=== PATIENT | female | born 1935 | race Caucasian/White ===

== ENCOUNTER 2017-02-11 09:33 | Emergency (ER) | payer OTHER ==
[~2017-02-11] VITALS: Ht 157.5 cm; Wt 70.0 kg
[~2017-02-11 09:33] MED LIST: ASPI-496 PO; INSU100I11; INSU100V8 HOMEINJ; LABE200T3 PO; LANS30CA PO; LOSA1TAB16 PO; LOVA20TA2 PO; OMEP-110 PO; PRAV40TA2 PO
[2017-02-11 10:31] LABS: HEMOGLOBIN 12.8 g/dL (11.7-16.4)
[2017-02-11 10:51] LABS: BLOOD UREA NITROGEN 27 mg/dL (7-18)
[2017-02-11 10:59] LABS: ASPARTATE AMINO TRANSFERASE 15 U/L (15-37)
[2017-02-11] MEDS ORDERED: SODIUM CHLORIDE FLUSH 10ML SYR IVF ONE (11:00)
[2017-02-11 11:04] LABS: IS PT STATUS REG ER OR PRE ER? YES
[2017-02-11] MEDS ORDERED: OMNIPAQUE 350 MG/ML, 100ML BOTTLE ONE (12:57)
[2017-02-11 13:41] VITALS: BP 173/47
== END 2017-02-11 13:56 | disposition home or self-care (01) ==
LOC: ED 13:50
DX: J20.8 Acute bronchitis due to other specified organisms (principal); E78.00 Pure hypercholesterolemia, unspecified; E11.9 Type 2 diabetes mellitus without complications; I10 Essential (primary) hypertension; K21.9 Gastro-esophageal reflux disease without esophagitis; E78.5 Hyperlipidemia, unspecified; Z79.4 Long term (current) use of insulin; Z88.6 Allergy status to analgesic agent; Z88.8 Allergy status to other drugs, medicaments and biological substances
CPT/HCPCS: 36415; 71020; 71275; 80053; 83605; 83880; 84484; 85025; 85379; 85610; 85730; 87040; 93005; 99285; Q9967

== ENCOUNTER 2017-03-19 05:20 | Inpatient (IN) | payer OTHER ==
[~2017-03-19] VITALS: Ht 158.8 cm; Wt 74.5 kg
[2017-03-19] MEDS ORDERED: ASPIRIN 81 MG TABLET CHEW PO ONE (06:00)
[2017-03-19] MEDS ORDERED: SODIUM CHLORIDE FLUSH 10ML SYR IVF ONE (06:00)
[2017-03-19] MEDS ORDERED: ASPIRIN 81 MG TABLET CHEW ONE (06:02)
[2017-03-19] MEDS ORDERED: NITROGLYCERIN SINGLE TAB 0.4 MG SL ONE ×3 (06:02→07:27)
[2017-03-19 06:21] LABS: BLOOD UREA NITROGEN 26 mg/dL (7-18)
[2017-03-19 06:32] LABS: IS PT STATUS REG ER OR PRE ER? YES
[2017-03-19] MEDS: NITROGLYCERIN SINGLE TAB 0.4 MG SL PRN ×4 (06:48→21:33)
[2017-03-19] MEDS ORDERED: HEPARIN 5,000 UNITS/ML, 1ML IV ONE (07:00)
[2017-03-19] MEDS ORDERED: HEPARIN 5,000 UNITS/ML, 1ML IV PRN ×2 (07:00→16:30)
[2017-03-19] MEDS ORDERED: HEPARIN 25,000 UNITS/500ML PMX 500 ML IV PRN ×2 (07:00→16:30)
[2017-03-19] MEDS ORDERED: HEPARIN 25,000 UNITS/500ML PMX 500 ML ONE (07:11)
[2017-03-19] MEDS ORDERED: HEPARIN 5,000 UNITS/ML, 1ML ONE (07:11)
[2017-03-19] MEDS ORDERED: OMNIPAQUE 350 MG/ML, 100ML BOTTLE ONE (07:21)
[2017-03-19 08:45] VITALS: BP 146/85
[2017-03-19] MEDS ORDERED: NITROGLYCERIN 0.4 MG BOTTLE (25 TABS) SL ONE (09:16)
[2017-03-19 09:33] VITALS: BP 147/82
[2017-03-19] MEDS: NITROGLYCERIN OINT 2%, 1GM TP SCH ×3 (09:46→20:53)
[2017-03-19 10:31] VITALS: BP 149/78
[2017-03-19] MEDS ORDERED: ACETAMINOPHEN 325 MG TABLET PO PRN (11:00)
[2017-03-19] MEDS ORDERED: POLYETHYLENE GLYCOL 17 GM PACKET PO PRN (11:00)
[2017-03-19] MEDS ORDERED: ONDANSETRON 2MG/ML, 2ML IVPush PRN (11:00)
[2017-03-19] MEDS ORDERED: ENALAPRILAT 1.25 MG/ML, 2ML IVPush PRN (11:00)
[2017-03-19] MEDS ORDERED: hydrALAzine 20 MG/ML, 1ML IVPush PRN (11:00)
[2017-03-19] MEDS ORDERED: OXYcodone IR 5MG TABLET PO PRN (11:00)
[2017-03-19] MEDS ORDERED: morphine SULFATE 10 MG/ML, 1ML IVPush PRN (11:00)
[2017-03-19] MEDS ORDERED: BISACODYL 10 MG SUPP PR PRN (11:00)
[2017-03-19] MEDS ORDERED: MIDAZOLAM 1 MG/ML, 5ML ONE (11:12)
[2017-03-19] MEDS ORDERED: HEPARIN 1,000 UNITS/ML, 10ML ONE (11:13)
[2017-03-19] MEDS ORDERED: LIDOCAINE 2%, 20ML ONE (11:13)
[2017-03-19] MEDS ORDERED: NITROGLYCERIN 5 MG/ML, 10ML ONE (11:13)
[2017-03-19] MEDS ORDERED: TICAGRELOR 90 MG TABLET ONE (11:13)
[2017-03-19] MEDS ORDERED: VERAPAMIL 2.5 MG/ML, 2ML ONE (11:13)
[2017-03-19] MEDS ORDERED: FENTANYL PF 100 MCG/2ML ONE (11:13)
[2017-03-19] MEDS ORDERED: BIVALIRUDIN 250 MG ONE (11:13)
[2017-03-19] MEDS: SODIUM CHLORIDE 0.9% 1,000 ML IV SCH ×2 (13:01→20:11)
[2017-03-19] MEDS ORDERED: METOPROLOL TARTRATE 25 MG TABLET PO ONE (14:00)
[2017-03-19] MEDS ORDERED: INSULIN ASPART 100 UNITS/ML, PEN SQ-INSULIN SCH (14:00)
[2017-03-19 14:45] LABS: BLOOD UREA NITROGEN 22 mg/dL (7-18)
[2017-03-19 14:48] LABS: ASPARTATE AMINO TRANSFERASE 15 U/L (15-37)
[2017-03-19 14:50] LABS: IS PT STATUS REG ER OR PRE ER? NO
[2017-03-19] MEDS: INSULIN ASPART 100 UNITS/ML, PEN SQ-INSULIN SCH ×2 (15:09→20:50)
[2017-03-19 16:03] VITALS: BP 132/66
[2017-03-19 18:59] VITALS: BP 128/71
[2017-03-19 19:30] LABS: IS PT STATUS REG ER OR PRE ER? NO
[2017-03-19] MEDS: LABETALOL 200 MG TABLET PO SCH (20:49)
[2017-03-19] MEDS: SODIUM CHLORIDE FLUSH 10ML SYR IVF SCH (20:50)
[2017-03-19] MEDS: MUPIROCIN OINT 2%, 22GM TP SCH (20:53)
[2017-03-19] MEDS: CHLORHEXIDINE MOUTHWASH 15 ML UDC MM PRN (20:54)
[2017-03-19] MEDS ORDERED: PRAVASTATIN 40 MG TABLET PO SCH (21:00)
[2017-03-19 21:32] VITALS: BP 129/77
[2017-03-20] MEDS ORDERED: ALBUMIN HUMAN 5% 500 ML IV ONE (00:30)
[2017-03-20 01:10] VITALS: BP 131/71
[2017-03-20 01:11] VITALS: BP 126/73
[2017-03-20 01:39] LABS: PATH.CAST-FLAG NOT PRESENT; SPERM-FLAG NOT PRESENT; SRC-FLAG NOT PRESENT; XTAL-FLAG NOT PRESENT; YLC-FLAG NOT PRESENT
[2017-03-20] MEDS: NITROGLYCERIN OINT 2%, 1GM TP SCH ×2 (03:30→09:30)
[2017-03-20 04:39] VITALS: BP 135/76
[2017-03-20] MEDS: INSULIN ASPART 100 UNITS/ML, PEN SQ-INSULIN SCH (04:40)
[2017-03-20] MEDS: MUPIROCIN OINT 2%, 22GM TP SCH (04:40)
[2017-03-20] MEDS: CHLORHEXIDINE MOUTHWASH 15 ML UDC MM PRN (04:41)
[2017-03-20 05:59] LABS: ASPARTATE AMINO TRANSFERASE 17 U/L (15-37); BLOOD UREA NITROGEN 23 mg/dL (7-18)
[2017-03-20] MEDS ORDERED: MIDAZOLAM 10MG/2 ML ONE (06:26)
[2017-03-20] MEDS ORDERED: FENTANYL PF 1000 MCG/20ML ONE (06:26)
[2017-03-20] MEDS ORDERED: DEXAMETHASONE 4 MG/ML, 1ML ONE (07:13)
[2017-03-20] MEDS ORDERED: ROCURONIUM 10 MG/ML ONE (07:13)
[2017-03-20] MEDS ORDERED: PROPOFOL 10 MG/ML, 20ML ONE (07:13)
[2017-03-20] MEDS ORDERED: MANNITOL PMX 20% 500 ML IVPB PRN (07:30)
[2017-03-20] MEDS ORDERED: POTASSIUM CHLORIDE 80 MEQ, SODIUM BICARBONATE 8.4% 10 MEQ, MAGNESIUM SULFATE 0.5 GM, LI... IV PRN (07:30)
[2017-03-20] MEDS ORDERED: EPINEPHRINE 2 MG in SODIUM CHLORIDE 0.9% 248 ML IV SCH (07:30)
[2017-03-20] MEDS ORDERED: VANCOMYCIN 1,100 MG in SODIUM CHLORIDE 0.9% 250 ML IVPB PRN (07:30)
[2017-03-20] MEDS ORDERED: DEXMEDETOMIDINE 200 MCG in SODIUM CHLORIDE 0.9% 48 ML IV SCH (07:30)
[2017-03-20] MEDS ORDERED: CEFUROXIME 1.5 GM in SODIUM CHLORIDE 0.9% 50 ML IVPB PRN (07:30)
[2017-03-20] MEDS ORDERED: PHENYLEPHRINE 10 MG in SODIUM CHLORIDE 0.9% 249 ML IV PRN ×2 (07:30→10:43)
[2017-03-20] MEDS ORDERED: REGULAR INSULIN 62.5 UNITS in SODIUM CHLORIDE 0.9% 249.375 ML IV PRN ×2 (07:30→10:43)
[2017-03-20] MEDS ORDERED: PANTOPROZOLE 40MG TABLET PO SCH (09:00)
[2017-03-20] MEDS: SODIUM CHLORIDE FLUSH 10ML SYR IVF SCH ×2 (09:00→22:11)
[2017-03-20] MEDS ORDERED: HYDROCHLOROTHIAZIDE 12.5 MG CAPSULE PO SCH (09:00)
[2017-03-20] MEDS ORDERED: ASPIRIN 81 MG TABLET EC PO SCH (09:00)
[2017-03-20] MEDS: LOSARTAN 50MG TABLET PO SCH (09:00)
[2017-03-20] MEDS ORDERED: SENNA/DOCUSATE TABLET PO SCH (09:00)
[2017-03-20] MEDS: LABETALOL 200 MG TABLET PO SCH (09:00)
[2017-03-20] MEDS ORDERED: SODIUM CHLORIDE 0.9% 1,000 ML IV PRN (10:43)
[2017-03-20] MEDS ORDERED: DEXMEDETOMIDINE 200 MCG in SODIUM CHLORIDE 0.9% 48 ML IV PRN (10:43)
[2017-03-20] MEDS ORDERED: CLEVIDIPINE 50 ML IV PRN (10:43)
[2017-03-20] MEDS ORDERED: NITROGLYCERIN/D5W PMX 250 ML IV PRN (10:43)
[2017-03-20] MEDS ORDERED: DOBUTAMINE 250 MG in SODIUM CHLORIDE 0.9% 230 ML IV PRN (10:43)
[2017-03-20] MEDS ORDERED: EPINEPHRINE 2 MG in SODIUM CHLORIDE 0.9% 248 ML IV PRN (11:00)
[2017-03-20] MEDS ORDERED: LACTATED RINGERS 500 ML IV PRN (11:00)
[2017-03-20] MEDS ORDERED: DEXTROSE 50%, 50ML SYRINGE IVPush PRN (11:00)
[2017-03-20] MEDS ORDERED: SODIUM BICARB 8.4%, 50ML SYRINGE IV PRN (11:00)
[2017-03-20] MEDS ORDERED: ACETAMINOPHEN 650 MG SUPP PR PRN (11:00)
[2017-03-20] MEDS ORDERED: PROCHLORPERAZINE 5 MG/ML, 2ML IVPush PRN (11:00)
[2017-03-20] MEDS ORDERED: MIDAZOLAM 1 MG/ML, 5ML IVPush PRN (11:00)
[2017-03-20] MEDS ORDERED: GLUCAGON 1 MG IM PRN (11:00)
[2017-03-20] MEDS ORDERED: BISACODYL 10 MG SUPP PR PRN (11:00)
[2017-03-20] MEDS ORDERED: ACETAMINOPHEN 325 MG TABLET PO PRN (11:00)
[2017-03-20] MEDS ORDERED: DEXTROSE 4 GM TAB.CHEW PO PRN (11:00)
[2017-03-20] MEDS: KSCALE TO 4.5 IV SCH ×2 (11:00→17:00)
[2017-03-20] MEDS ORDERED: BISACODYL 5 MG EC TABLET PO PRN (11:00)
[2017-03-20] MEDS ORDERED: MEPERIDINE/PF 25MG/0.5ML IVPush PRN (11:00)
[2017-03-20 11:24] LABS: ABG COLLECTION SITE ARTERIAL LINE
[2017-03-20] MEDS: morphine SULFATE 10 MG/ML, 1ML IVPush PRN ×4 (11:24→22:44)
[2017-03-20] MEDS: MAGNESIUM SULFATE 1 GM in SODIUM CHLORIDE 0.9% 50 ML IVPB SCH (11:31)
[2017-03-20] MEDS ORDERED: CALCIUM CHLORIDE 10%, 10ML SYR ONE (12:54)
[2017-03-20] MEDS ORDERED: PROTAMINE SULFATE 10 MG/ML, 25ML ONE (12:54)
[2017-03-20] MEDS ORDERED: HEPARIN 1,000 UNITS/ML, 30ML ONE (12:55)
[2017-03-20] MEDS ORDERED: LIDOCAINE 2% 100MG/5ML SYRINGE ONE (12:55)
[2017-03-20] MEDS ORDERED: AMINOCAPROIC ACID 250 MG/ML, 20ML ONE (12:55)
[2017-03-20] MEDS ORDERED: ALBUMIN HUMAN 25% 100 ML ONE (12:55)
[2017-03-20] MEDS ORDERED: HEPARIN 1,000 UNITS/ML, 10ML ONE (12:55)
[2017-03-20] MEDS ORDERED: PAPAVERINE 30 MG/ML, 2ML ONE (12:55)
[2017-03-20] MEDS ORDERED: SODIUM BICARBONATE 1 MEQ/ML, 50ML VIAL ONE (12:58)
[2017-03-20 17:08] LABS: ABG COLLECTION SITE NOT DOCUMENTED
[2017-03-20] MEDS: CEFUROXIME 1.5 GM in SODIUM CHLORIDE 0.9% 50 ML IVPB SCH (17:53)
[2017-03-20] MEDS: VANCOMYCIN PMX 1GM/200ML 200 ML IVPB SCH (18:32)
[2017-03-20] MEDS: DOCUSATE 100 MG CAPSULE PO SCH (22:10)
[2017-03-20] MEDS: MUPIROCIN OINT 2%, 22GM NAS SCH (22:10)
[2017-03-20] MEDS: HYDROcodone/APAP 10/325 MG TABLET PO PRN (22:11)
[2017-03-21] MEDS: KSCALE TO 4.5 IV SCH ×2 (01:00→05:48)
[2017-03-21] MEDS: HYDROcodone/APAP 10/325 MG TABLET PO PRN ×4 (03:08→18:25)
[2017-03-21 04:00] VITALS: BP 116/43
[2017-03-21 04:57] LABS: BLOOD UREA NITROGEN 27 mg/dL (7-18)
[2017-03-21] MEDS: CEFUROXIME 1.5 GM in SODIUM CHLORIDE 0.9% 50 ML IVPB SCH (05:46)
[2017-03-21] MEDS ORDERED: ENOXAPARIN 30 MG/0.3 ML SQ SCH (07:30)
[2017-03-21] MEDS: INSULIN ASPART 100 UNITS/ML, PEN SQ-INSULIN PRN ×5 (07:30→21:45)
[2017-03-21] MEDS: SODIUM CHLORIDE FLUSH 10ML SYR IVF SCH ×3 (07:34→21:41)
[2017-03-21] MEDS: PANTOPRAZOLE 40 MG IV IVPush SCH (07:34)
[2017-03-21] MEDS: VANCOMYCIN PMX 1GM/200ML 200 ML IVPB SCH (07:34)
[2017-03-21] MEDS: MUPIROCIN OINT 2%, 22GM NAS SCH ×2 (07:34→21:42)
[2017-03-21] MEDS: LOSARTAN 50MG TABLET PO SCH (07:35)
[2017-03-21] MEDS: ASPIRIN 81 MG TABLET EC PO SCH (07:35)
[2017-03-21] MEDS: DOCUSATE 100 MG CAPSULE PO SCH ×2 (07:35→21:42)
[2017-03-21] MEDS ORDERED: MAGNESIUM HYDROXIDE 8%, 30ML UDC PO PRN (08:00)
[2017-03-21] MEDS: ONDANSETRON 2MG/ML, 2ML IVPush PRN (09:00)
[2017-03-21] MEDS: MAGNESIUM SULFATE 1 GM in SODIUM CHLORIDE 0.9% 50 ML IVPB SCH (11:10)
[2017-03-21] MEDS: CHLORHEXIDINE MOUTHWASH 15 ML UDC MM SCH ×2 (11:11→23:05)
[2017-03-21] MEDS ORDERED: SODIUM CHLORIDE 0.9%, 500ML IVBOLUS ONE (13:00)
[2017-03-21 16:43] VITALS: BP 94/41
[2017-03-21 19:33] VITALS: BP 110/67
[2017-03-21] MEDS: SIMVASTATIN 20 MG TABLET PO SCH (21:43)
[2017-03-21] MEDS: OXYcodone IR 5MG TABLET PO PRN (21:57)
[2017-03-22 02:40] VITALS: BP 125/69
[2017-03-22 04:00] VITALS: BP 109/69
[2017-03-22] MEDS ORDERED: AMIODARONE 900 MG in DEXTROSE 5% 482 ML IV PRN (04:30)
[2017-03-22] MEDS ORDERED: AMIODARONE 150 MG in DEXTROSE 5% 100 ML IV ONE (04:30)
[2017-03-22] MEDS: HYDROcodone/APAP 10/325 MG TABLET PO PRN ×2 (04:35→08:58)
[2017-03-22 04:55] LABS: BLOOD UREA NITROGEN 42 mg/dL (7-18)
[2017-03-22 05:00] VITALS: BP 101/64
[2017-03-22] MEDS ORDERED: FILTER 0.22 MICRON IV PRN (05:00)
[2017-03-22 06:56] VITALS: BP 103/58
[2017-03-22] MEDS: ONDANSETRON 2MG/ML, 2ML IVPush PRN (07:57)
[2017-03-22] MEDS: ASPIRIN 81 MG TABLET EC PO SCH (08:57)
[2017-03-22] MEDS: MUPIROCIN OINT 2%, 22GM NAS SCH ×2 (08:58→20:54)
[2017-03-22] MEDS: PANTOPRAZOLE 40 MG IV IVPush SCH (08:58)
[2017-03-22] MEDS: DOCUSATE 100 MG CAPSULE PO SCH ×2 (08:58→20:54)
[2017-03-22] MEDS ORDERED: ENOXAPARIN 30 MG/0.3 ML SQ SCH ×2 (09:00)
[2017-03-22] MEDS ORDERED: FUROSEMIDE 20 MG/2 ML IV SCH ×2 (09:00)
[2017-03-22] MEDS ORDERED: ENOXAPARIN 40 MG/0.4 ML SQ SCH (09:00)
[2017-03-22] MEDS ORDERED: POTASSIUM CHLORIDE 10 MEQ TABLET.ER PO SCH (09:00)
[2017-03-22] MEDS: INSULIN ASPART 100 UNITS/ML, PEN SQ-INSULIN PRN ×4 (09:08→20:58)
[2017-03-22] MEDS: SODIUM CHLORIDE FLUSH 10ML SYR IVF SCH ×4 (09:10→20:54)
[2017-03-22] MEDS ORDERED: SODIUM CHLORIDE 0.9% 1,000 ML IV SCH (09:30)
[2017-03-22] MEDS: CHLORHEXIDINE MOUTHWASH 15 ML UDC MM SCH ×2 (11:50→23:18)
[2017-03-22] MEDS: MAGNESIUM SULFATE 1 GM in SODIUM CHLORIDE 0.9% 50 ML IVPB SCH (11:51)
[2017-03-22] MEDS: HEPARIN 5,000 UNITS/ML, 1ML SQ SCH ×2 (13:06→21:01)
[2017-03-22 14:14] VITALS: BP 99/66
[2017-03-22] MEDS: SIMVASTATIN 20 MG TABLET PO SCH (20:54)
[2017-03-22 21:00] VITALS: BP 110/68
[2017-03-23] MEDS: HEPARIN 5,000 UNITS/ML, 1ML SQ SCH ×3 (04:24→22:13)
[2017-03-23 04:25] VITALS: BP 115/70
[2017-03-23 07:04] LABS: BLOOD UREA NITROGEN 68 mg/dL (7-18)
[2017-03-23 07:19] LABS: ASPARTATE AMINO TRANSFERASE 2280 U/L (15-37)
[2017-03-23 08:02] VITALS: BP 110/68
[2017-03-23] MEDS: ASPIRIN 81 MG TABLET EC PO SCH (08:40)
[2017-03-23] MEDS: CLOPIDOGREL 75 MG TABLET PO SCH (08:40)
[2017-03-23] MEDS: PANTOPRAZOLE 40 MG IV IVPush SCH (08:40)
[2017-03-23] MEDS: DOCUSATE 100 MG CAPSULE PO SCH ×2 (08:40→22:14)
[2017-03-23] MEDS: SODIUM CHLORIDE FLUSH 10ML SYR IVF SCH ×4 (08:42→22:13)
[2017-03-23] MEDS: INSULIN ASPART 100 UNITS/ML, PEN SQ-INSULIN SCH ×4 (08:53→21:00)
[2017-03-23] MEDS ORDERED: CLOPIDOGREL 75 MG TABLET PO SCH (09:00)
[2017-03-23] MEDS: MUPIROCIN OINT 2%, 22GM NAS SCH ×2 (09:05→22:14)
[2017-03-23] MEDS ORDERED: ARANESP 100 MCG/ML **ESRD SQ SCH (12:30)
[2017-03-23 13:15] VITALS: BP 135/68
[2017-03-23 20:00] VITALS: BP 130/69
[2017-03-23] MEDS: SIMVASTATIN 20 MG TABLET PO SCH (21:00)
[2017-03-24 03:47] VITALS: BP 133/71
[2017-03-24 05:21] LABS: ASPARTATE AMINO TRANSFERASE 785 U/L (15-37); BLOOD UREA NITROGEN 90 mg/dL (7-18)
[2017-03-24] MEDS: HEPARIN 5,000 UNITS/ML, 1ML SQ SCH ×3 (05:45→22:14)
[2017-03-24 07:10] VITALS: BP 130/66
[2017-03-24] MEDS: PANTOPROZOLE 40MG TABLET PO SCH ×2 (07:30→12:46)
[2017-03-24] MEDS: INSULIN ASPART 100 UNITS/ML, PEN SQ-INSULIN SCH ×4 (08:32→22:14)
[2017-03-24] MEDS: CLOPIDOGREL 75 MG TABLET PO SCH (08:55)
[2017-03-24] MEDS: PANTOPRAZOLE 40 MG IV IVPush SCH (08:55)
[2017-03-24] MEDS: DOCUSATE 100 MG CAPSULE PO SCH ×2 (08:55→21:00)
[2017-03-24] MEDS: MUPIROCIN OINT 2%, 22GM NAS SCH ×2 (08:55→22:14)
[2017-03-24] MEDS: ASPIRIN 81 MG TABLET EC PO SCH (08:55)
[2017-03-24] MEDS: SODIUM CHLORIDE FLUSH 10ML SYR IVF SCH ×4 (09:02→22:13)
[2017-03-24 14:00] VITALS: BP 141/79
[2017-03-24] MEDS ORDERED: DILTIAZEM 5 MG/ML, 5ML IVPush ONE (15:00)
[2017-03-24] MEDS ORDERED: DILTIAZEM 5 MG/ML, 5ML ONE (15:03)
[2017-03-24 15:27] VITALS: BP 120/76
[2017-03-24] MEDS: DILTIAZEM 125 MG in SODIUM CHLORIDE 0.9% 100 ML IV PRN (15:28)
[2017-03-24] MEDS ORDERED: DILTIAZEM 125 MG in SODIUM CHLORIDE 0.9% 100 ML IV PRN (15:30)
[2017-03-24] MEDS: SIMVASTATIN 20 MG TABLET PO SCH (21:00)
[2017-03-24 22:07] VITALS: BP 121/85
[2017-03-25] MEDS: DILTIAZEM 125 MG in SODIUM CHLORIDE 0.9% 100 ML IV PRN ×2 (02:53→17:02)
[2017-03-25 02:58] VITALS: BP 120/59
[2017-03-25] MEDS: HEPARIN 5,000 UNITS/ML, 1ML SQ SCH ×3 (06:07→21:18)
[2017-03-25 08:26] LABS: ASPARTATE AMINO TRANSFERASE 1144 U/L (15-37); BLOOD UREA NITROGEN 81 mg/dL (7-18)
[2017-03-25] MEDS: HYDROcodone/APAP 10/325 MG TABLET PO PRN (08:48)
[2017-03-25] MEDS: ASPIRIN 81 MG TABLET EC PO SCH (08:48)
[2017-03-25] MEDS: MUPIROCIN OINT 2%, 22GM NAS SCH (08:48)
[2017-03-25] MEDS: DOCUSATE 100 MG CAPSULE PO SCH ×2 (08:48→21:18)
[2017-03-25] MEDS: INSULIN ASPART 100 UNITS/ML, PEN SQ-INSULIN SCH ×4 (08:48→19:56)
[2017-03-25] MEDS: PANTOPROZOLE 40MG TABLET PO SCH (08:48)
[2017-03-25] MEDS: CLOPIDOGREL 75 MG TABLET PO SCH (08:48)
[2017-03-25] MEDS: SODIUM CHLORIDE FLUSH 10ML SYR IVF SCH ×3 (08:48→21:18)
[2017-03-25 09:10] VITALS: BP 141/74
[2017-03-25] MEDS ORDERED: SIMETHICONE 80 MG CHEW TAB PO PRN (10:00)
[2017-03-25] MEDS: METOPROLOL TARTRATE 25 MG TABLET PO SCH ×2 (13:21→18:20)
[2017-03-25 16:55] VITALS: BP 114/66
[2017-03-25 21:12] VITALS: BP 91/61
[2017-03-26 01:32] VITALS: BP 123/68
[2017-03-26] MEDS: METOPROLOL TARTRATE 25 MG TABLET PO SCH ×3 (01:37→22:11)
[2017-03-26 06:33] LABS: ASPARTATE AMINO TRANSFERASE 1084 U/L (15-37); BLOOD UREA NITROGEN 82 mg/dL (7-18)
[2017-03-26] MEDS: HEPARIN 5,000 UNITS/ML, 1ML SQ SCH ×3 (06:39→22:10)
[2017-03-26] MEDS: POLYETHYLENE GLYCOL 17 GM PACKET PO SCH (08:29)
[2017-03-26] MEDS: INSULIN ASPART 100 UNITS/ML, PEN SQ-INSULIN SCH ×4 (08:29→22:09)
[2017-03-26] MEDS: DOCUSATE CALCIUM 240 MG CAPSULE PO SCH ×2 (08:30→22:12)
[2017-03-26] MEDS: ASPIRIN 81 MG TABLET EC PO SCH (08:30)
[2017-03-26] MEDS: CLOPIDOGREL 75 MG TABLET PO SCH (08:30)
[2017-03-26] MEDS: PANTOPROZOLE 40MG TABLET PO SCH (08:31)
[2017-03-26] MEDS: SODIUM CHLORIDE FLUSH 10ML SYR IVF SCH ×2 (08:31→22:11)
[2017-03-26] MEDS: DOCUSATE 100 MG CAPSULE PO SCH (08:31)
[2017-03-26 08:33] VITALS: BP 129/70
[2017-03-26] MEDS ORDERED: MAGNESIUM HYDROXIDE 8%, 30ML UDC PO SCH (09:00)
[2017-03-26] MEDS: DILTIAZEM 60 MG TABLET PO SCH ×3 (11:34→22:10)
[2017-03-26] MEDS: INSULIN DETEMIR 100 UNITS/ML, PEN SQ-INSULIN SCH (11:34)
[2017-03-26 15:10] VITALS: BP 133/65
[2017-03-26 22:04] VITALS: BP 146/73
[2017-03-27 01:57] VITALS: BP 122/68
[2017-03-27] MEDS: HEPARIN 5,000 UNITS/ML, 1ML SQ SCH ×3 (05:25→22:01)
[2017-03-27] MEDS: METOPROLOL TARTRATE 25 MG TABLET PO SCH ×3 (05:26→22:00)
[2017-03-27] MEDS: DILTIAZEM 60 MG TABLET PO SCH (05:26)
[2017-03-27 06:11] LABS: ASPARTATE AMINO TRANSFERASE 311 U/L (15-37); BLOOD UREA NITROGEN 66 mg/dL (7-18)
[2017-03-27] MEDS: INSULIN ASPART 100 UNITS/ML, PEN SQ-INSULIN SCH ×4 (07:00→22:00)
[2017-03-27 07:32] VITALS: BP 120/62
[2017-03-27] MEDS: POLYETHYLENE GLYCOL 17 GM PACKET PO SCH (07:51)
[2017-03-27] MEDS: DOCUSATE CALCIUM 240 MG CAPSULE PO SCH ×2 (07:52→22:01)
[2017-03-27] MEDS: SODIUM CHLORIDE FLUSH 10ML SYR IVF SCH ×2 (07:52→22:00)
[2017-03-27] MEDS: CLOPIDOGREL 75 MG TABLET PO SCH (07:52)
[2017-03-27] MEDS: ASPIRIN 81 MG TABLET EC PO SCH (07:52)
[2017-03-27] MEDS: INSULIN DETEMIR 100 UNITS/ML, PEN SQ-INSULIN SCH (07:52)
[2017-03-27] MEDS: PANTOPROZOLE 40MG TABLET PO SCH (07:52)
[2017-03-27] MEDS: DILTIAZEM 300 MG CAP.ER.24H PO SCH (10:14)
[2017-03-27] MEDS: OXYcodone IR 5MG TABLET PO PRN (11:33)
[2017-03-27 14:03] VITALS: BP 134/73
[2017-03-27 19:20] VITALS: BP 134/69
[2017-03-28 01:45] VITALS: BP 123/67
[2017-03-28 05:42] VITALS: BP 133/76
[2017-03-28] MEDS: HEPARIN 5,000 UNITS/ML, 1ML SQ SCH ×3 (05:44→20:20)
[2017-03-28] MEDS: METOPROLOL TARTRATE 25 MG TABLET PO SCH ×3 (05:44→20:20)
[2017-03-28 06:47] LABS: ASPARTATE AMINO TRANSFERASE 102 U/L (15-37); BLOOD UREA NITROGEN 53 mg/dL (7-18)
[2017-03-28 07:38] VITALS: BP 136/73
[2017-03-28] MEDS: INSULIN ASPART 100 UNITS/ML, PEN SQ-INSULIN SCH ×4 (08:35→20:20)
[2017-03-28] MEDS: POLYETHYLENE GLYCOL 17 GM PACKET PO SCH (08:36)
[2017-03-28] MEDS: PANTOPROZOLE 40MG TABLET PO SCH (08:36)
[2017-03-28] MEDS: CLOPIDOGREL 75 MG TABLET PO SCH (08:36)
[2017-03-28] MEDS: DILTIAZEM 300 MG CAP.ER.24H PO SCH (08:36)
[2017-03-28] MEDS: SODIUM CHLORIDE FLUSH 10ML SYR IVF SCH ×2 (08:36→20:19)
[2017-03-28] MEDS: ASPIRIN 81 MG TABLET EC PO SCH (08:36)
[2017-03-28] MEDS: DOCUSATE CALCIUM 240 MG CAPSULE PO SCH ×2 (08:36→20:21)
[2017-03-28] MEDS: INSULIN DETEMIR 100 UNITS/ML, PEN SQ-INSULIN SCH (08:36)
[2017-03-28 14:22] VITALS: BP 128/71
[2017-03-28 19:58] VITALS: BP 143/74
[2017-03-29 03:15] VITALS: BP 146/81
[2017-03-29] MEDS: METOPROLOL TARTRATE 25 MG TABLET PO SCH ×3 (05:48→20:05)
[2017-03-29] MEDS: HEPARIN 5,000 UNITS/ML, 1ML SQ SCH ×3 (05:48→20:05)
[2017-03-29 06:23] LABS: ASPARTATE AMINO TRANSFERASE 56 U/L (15-37); BLOOD UREA NITROGEN 38 mg/dL (7-18)
[2017-03-29 07:09] VITALS: BP 135/77
[2017-03-29] MEDS: PANTOPROZOLE 40MG TABLET PO SCH (08:06)
[2017-03-29] MEDS: INSULIN ASPART 100 UNITS/ML, PEN SQ-INSULIN SCH ×4 (08:06→20:04)
[2017-03-29] MEDS: INSULIN DETEMIR 100 UNITS/ML, PEN SQ-INSULIN SCH (08:06)
[2017-03-29] MEDS: SODIUM CHLORIDE FLUSH 10ML SYR IVF SCH ×2 (08:07→20:05)
[2017-03-29] MEDS: ASPIRIN 81 MG TABLET EC PO SCH (08:07)
[2017-03-29] MEDS: CLOPIDOGREL 75 MG TABLET PO SCH (08:07)
[2017-03-29] MEDS: POLYETHYLENE GLYCOL 17 GM PACKET PO SCH (08:07)
[2017-03-29] MEDS: DILTIAZEM 300 MG CAP.ER.24H PO SCH (08:07)
[2017-03-29] MEDS: DOCUSATE CALCIUM 240 MG CAPSULE PO SCH ×2 (08:07→20:05)
[2017-03-29 15:10] VITALS: BP 133/69
[2017-03-29 19:07] VITALS: BP 146/75
[2017-03-29] MEDS ORDERED: DILTIAZEM 125 MG in SODIUM CHLORIDE 0.9% 100 ML IV SCH (20:44)
[2017-03-30] VITALS (8 sets, daily range): BP systolic 113–143; BP diastolic 58–83
[2017-03-30] MEDS ORDERED: TRAZODONE 50MG TABLET PO ONE (02:00)
[2017-03-30 05:46] LABS: ASPARTATE AMINO TRANSFERASE 42 U/L (15-37); BLOOD UREA NITROGEN 34 mg/dL (7-18)
[2017-03-30] MEDS: METOPROLOL TARTRATE 25 MG TABLET PO SCH ×3 (06:11→20:38)
[2017-03-30] MEDS: HEPARIN 5,000 UNITS/ML, 1ML SQ SCH ×3 (06:12→20:38)
[2017-03-30] MEDS: INSULIN ASPART 100 UNITS/ML, PEN SQ-INSULIN SCH ×4 (07:40→20:37)
[2017-03-30] MEDS: INSULIN DETEMIR 100 UNITS/ML, PEN SQ-INSULIN SCH ×2 (07:40→23:15)
[2017-03-30] MEDS: PANTOPROZOLE 40MG TABLET PO SCH (07:41)
[2017-03-30] MEDS: SODIUM CHLORIDE FLUSH 10ML SYR IVF SCH ×2 (07:41→20:38)
[2017-03-30] MEDS: ASPIRIN 81 MG TABLET EC PO SCH (07:41)
[2017-03-30] MEDS: POLYETHYLENE GLYCOL 17 GM PACKET PO SCH (07:41)
[2017-03-30] MEDS: CLOPIDOGREL 75 MG TABLET PO SCH (07:42)
[2017-03-30] MEDS: DOCUSATE CALCIUM 240 MG CAPSULE PO SCH ×2 (07:42→20:38)
[2017-03-30] MEDS ORDERED: AMIODARONE 150 MG in DEXTROSE 5% 100 ML IV ONE (10:00)
[2017-03-30] MEDS: DILTIAZEM CD 180 MG CAP.ER.24H PO SCH (10:32)
[2017-03-30] MEDS ORDERED: POTASSIUM CHLORIDE 20 MEQ TAB.ER.PRT PO ONE (12:30)
[2017-03-30] MEDS ORDERED: FUROSEMIDE 40 MG/4 ML IV ONE (12:30)
[2017-03-30 15:43] LABS: POTASSIUM,URINE RANDOM 24 mmol/L
[2017-03-30] MEDS ORDERED: CEFTRIAXONE 2 GM in SODIUM CHLORIDE 0.9% 50 ML IV SCH (22:30)
[2017-03-31] MEDS: OXYcodone IR 5MG TABLET PO PRN ×2 (00:42→22:09)
[2017-03-31 02:00] VITALS: BP 145/69
[2017-03-31] MEDS: METOPROLOL TARTRATE 25 MG TABLET PO SCH (05:16)
[2017-03-31] MEDS: HEPARIN 5,000 UNITS/ML, 1ML SQ SCH ×3 (05:16→22:09)
[2017-03-31 05:36] LABS: BLOOD UREA NITROGEN 36 mg/dL (7-18)
[2017-03-31 05:40] LABS: ASPARTATE AMINO TRANSFERASE 35 U/L (15-37)
[2017-03-31 07:41] VITALS: BP 155/76
[2017-03-31] MEDS: INSULIN DETEMIR 100 UNITS/ML, PEN SQ-INSULIN SCH ×2 (07:44→22:10)
[2017-03-31] MEDS: INSULIN ASPART 100 UNITS/ML, PEN SQ-INSULIN SCH ×4 (07:44→22:09)
[2017-03-31] MEDS: DOCUSATE CALCIUM 240 MG CAPSULE PO SCH ×2 (07:45→20:17)
[2017-03-31] MEDS: ASPIRIN 81 MG TABLET EC PO SCH (07:45)
[2017-03-31] MEDS: PANTOPROZOLE 40MG TABLET PO SCH (07:45)
[2017-03-31] MEDS: CLOPIDOGREL 75 MG TABLET PO SCH (07:45)
[2017-03-31] MEDS: POLYETHYLENE GLYCOL 17 GM PACKET PO SCH (07:45)
[2017-03-31] MEDS: SODIUM CHLORIDE FLUSH 10ML SYR IVF SCH ×2 (07:46→20:17)
[2017-03-31] MEDS: DILTIAZEM CD 180 MG CAP.ER.24H PO SCH (10:01)
[2017-03-31] MEDS: METOPROLOL TARTRATE 50 MG TABLET PO SCH ×2 (10:01→20:16)
[2017-03-31] MEDS ORDERED: AMPICILLIN/SULBACTAM 1,500 MG in SODIUM CHLORIDE 0.9% 50 ML IV SCH (13:30)
[2017-03-31] MEDS: AMPICILLIN/SULBACTAM 1,500 MG in SODIUM CHLORIDE 0.9% 100 ML IV SCH ×2 (14:30→22:10)
[2017-03-31 14:33] VITALS: BP 132/70
[2017-03-31 20:14] VITALS: BP 156/63
[2017-03-31] MEDS ORDERED: INSULIN DETEMIR 100 UNITS/ML, PEN SQ-INSULIN SCH (21:00)
[2017-04-01 01:30] VITALS: BP 156/71
[2017-04-01 05:51] LABS: ASPARTATE AMINO TRANSFERASE 32 U/L (15-37); BLOOD UREA NITROGEN 35 mg/dL (7-18)
[2017-04-01] MEDS: HEPARIN 5,000 UNITS/ML, 1ML SQ SCH (06:00)
[2017-04-01] MEDS: AMPICILLIN/SULBACTAM 1,500 MG in SODIUM CHLORIDE 0.9% 100 ML IV SCH (06:21)
[2017-04-01] MEDS: INSULIN ASPART 100 UNITS/ML, PEN SQ-INSULIN SCH ×2 (07:00→11:53)
[2017-04-01] MEDS: INSULIN DETEMIR 100 UNITS/ML, PEN SQ-INSULIN SCH (07:55)
[2017-04-01] MEDS: ASPIRIN 81 MG TABLET EC PO SCH (07:57)
[2017-04-01] MEDS: PANTOPROZOLE 40MG TABLET PO SCH (07:57)
[2017-04-01] MEDS: SODIUM CHLORIDE FLUSH 10ML SYR IVF SCH (07:57)
[2017-04-01] MEDS: DOCUSATE CALCIUM 240 MG CAPSULE PO SCH (07:57)
[2017-04-01] MEDS: METOPROLOL TARTRATE 50 MG TABLET PO SCH (07:58)
[2017-04-01] MEDS: CLOPIDOGREL 75 MG TABLET PO SCH (07:58)
[2017-04-01] MEDS: POLYETHYLENE GLYCOL 17 GM PACKET PO SCH (07:58)
[2017-04-01 08:01] VITALS: BP 142/80
[2017-04-01] MEDS ORDERED: FLUCONAZOLE 100 MG TABLET PO SCH (09:00)
[2017-04-01] MEDS ORDERED: FUROSEMIDE 20 MG TABLET PO SCH (09:30)
[2017-04-01] MEDS: DILTIAZEM CD 180 MG CAP.ER.24H PO SCH (11:53)
[2017-04-01] MEDS ORDERED: FURO20TA3 PO (12:01)
[2017-04-01] MEDS ORDERED: DILT180C53 PO (12:01)
[2017-04-01] MEDS ORDERED: CLOP75TA PO (12:01)
[2017-04-01] MEDS ORDERED: INSU100V8 HOMEINJ (12:01)
[2017-04-01] MEDS ORDERED: METO50TA82 PO (12:01)
[2017-04-01] MEDS ORDERED: FLUC100T PO (12:01)
[2017-04-01] MEDS ORDERED: POLY17PO5 PO (12:01)
[2017-04-01] MEDS ORDERED: AMOX1TAB61 PO (12:01)
[2017-04-01] MEDS ORDERED: OXYC5TAB3 PO (12:01)
[2017-04-12] MEDS ORDERED: LABE200T3 PO (20:35)
[2017-04-12] MEDS ORDERED: LOSA50TA6 PO (20:35)
[2017-04-14] MEDS ORDERED: CLOP75TA PO (12:27)
== END 2017-04-01 14:53 | DRG 233 ==
LOC: ED 06:50 → EDIP 06:51 → ED 06:56 → 5SO 08:32 → CCU 03-20 08:16 → CSU 03-20 09:39 → 5SO 03-21 15:30 → DCLOUNGE 04-01 14:15
PROVIDERS: ADMIT Internal Medicine; ATTEND Internal Medicine
PROC: 4A023N7 Measurement of Cardiac Sampling and Pressure, Left Heart, Percutaneous Approach (ICD-10-PCS; 2017-03-20)
PROC: 021109W Bypass Coronary Artery, Two Arteries from Aorta with Autologous Venous Tissue, Open Approach (ICD-10-PCS; 2017-03-20)
PROC: 06BQ4ZZ Excision of Left Saphenous Vein, Percutaneous Endoscopic Approach (ICD-10-PCS; 2017-03-20)
PROC: 06BP4ZZ Excision of Right Saphenous Vein, Percutaneous Endoscopic Approach (ICD-10-PCS; 2017-03-20)
PROC: 5A1221Z Performance of Cardiac Output, Continuous (ICD-10-PCS; 2017-03-20)
PROC: B2111ZZ Fluoroscopy of Multiple Coronary Arteries using Low Osmolar Contrast (ICD-10-PCS; 2017-03-20)
PROC: B2151ZZ Fluoroscopy of Left Heart using Low Osmolar Contrast (ICD-10-PCS; 2017-03-20)
PROC: B246ZZ4 Ultrasonography of Right and Left Heart, Transesophageal (ICD-10-PCS; 2017-03-20)
PROC: 02100Z9 Bypass Coronary Artery, One Artery from Left Internal Mammary, Open Approach (ICD-10-PCS; principal; 2017-03-20 07:30)
DX: I21.4 Non-ST elevation (NSTEMI) myocardial infarction (principal); I50.41 Acute combined systolic (congestive) and diastolic (congestive) heart failure; N17.9 Acute kidney failure, unspecified; E46 Unspecified protein-calorie malnutrition; D68.69 Other thrombophilia; E87.1 Hypo-osmolality and hyponatremia; N39.0 Urinary tract infection, site not specified; Z99.11 Dependence on respirator [ventilator] status; I25.110 Atherosclerotic heart disease of native coronary artery with unstable angina pectoris; M54.9 Dorsalgia, unspecified; E11.9 Type 2 diabetes mellitus without complications; E78.00 Pure hypercholesterolemia, unspecified; D63.8 Anemia in other chronic diseases classified elsewhere; D50.0 Iron deficiency anemia secondary to blood loss (chronic); E78.5 Hyperlipidemia, unspecified; E87.5 Hyperkalemia; I11.0 Hypertensive heart disease with heart failure; I25.2 Old myocardial infarction; I48.0 Paroxysmal atrial fibrillation; K21.9 Gastro-esophageal reflux disease without esophagitis; K76.89 Other specified diseases of liver; N28.1 Cyst of kidney, acquired; Z79.4 Long term (current) use of insulin; Z79.82 Long term (current) use of aspirin; Z79.899 Other long term (current) drug therapy; Z87.442 Personal history of urinary calculi; Z87.891 Personal history of nicotine dependence; Z90.49 Acquired absence of other specified parts of digestive tract; Z68.29 Body mass index [BMI] 29.0-29.9, adult; R06.89 Other abnormalities of breathing
CPT/HCPCS: 36415; 36600; 71010; 71020; 71275; 74000; 76700; 80048; 80053; 80061; 81001; 82040; 82330; 82436; 82570; 82800; 82803; 82810; 82947; 82962; 83036; 83735; 84100; 84132; 84133; 84295; 84300; 84311; 84439; 84443; 84484; 84550; 85014; 85018; 85025; 85049; 85347; 85379; 85520; 85610; 85730; 86850; 86900; 86923; 87081; 87086; 87106; 93005; 93306; 93312; 93321; 93325; 93458; 93880; 94002; 94150; 96374; C1769; C1894; J0583; J0696; J0697; J0882; J1100; J1644; J1815; J1940; J2250; J2405; J2704; J2720; J3010; J3370; J3475; J3480; J3490; P9045; P9047; Q9967; C1760; C9113; J0171; J0282; J0295; J2270; J2370; J2440; J7030; J7040; J7050; J7060

== ENCOUNTER → 2017-04-08 | Outpatient (CLI) | payer OTHER ==
[~2017-04-08] MED LIST changes: +AMOX1TAB61 PO; +CLOP75TA PO; +DILT180C53 PO; +FLUC100T PO; +FURO20TA3 PO; +METO50TA82 PO; +OXYC5TAB3 PO; +POLY17PO5 PO
== END | disposition home or self-care (01) ==
LOC: CFH 15:30
PROVIDERS: ATTEND Internal Medicine
DX: J90 Pleural effusion, not elsewhere classified (principal); J98.11 Atelectasis; I50.23 Acute on chronic systolic (congestive) heart failure
CPT/HCPCS: 71020

== ENCOUNTER 2019-03-17 09:44 | Emergency (ER) | payer MEDICARE, OTHER ==
[~2019-03-17] VITALS: Ht 157.5 cm; Wt 69.0 kg
[~2019-03-17 09:44] MED LIST changes: -LABE200T3 PO; +LABE200T6 PO; -LOSA1TAB16 PO; +LOSA1TAB19 PO; +LOSA50TA14 PO
--- NOTE | 2019-03-17 11:28 | NUR ---
[employer]LY[employer]: PT TO ROOM FROM LOBBY, GAIT SLOW AND STEADY.
--- NOTE | 2019-03-17 11:32 | NUR ---
PATIENT PRESENTS TO ED TODAY FOR SORE THROAT AND COUGH X 12 DAYS, SKIN WARM, PINK, DRY. A+OX4. SPOUSE AT BEDSIDE, PATIENT IN [facility] SPEAKING WITH MD AT BEDSIDE, AWAITING MD ORDERS, CALL LIGHT WITHIN REACH.
[2019-03-17] MEDS ORDERED: METO25TA35 PO (11:38)
[2019-03-17] MEDS ORDERED: HYDR12.517 PO (11:39)
[2019-03-17] MEDS ORDERED: GABA-827 PO (11:40)
[2019-03-17] MEDS ORDERED: AMLO10TA8 PO (11:40)
[2019-03-17] MEDS ORDERED: IRON15TA3 PO (11:41)
[2019-03-17] MEDS ORDERED: CHOL400T5 PO (11:42)
[2019-03-17] MEDS ORDERED: UBIQ100C3 PO (11:42)
[2019-03-17] MEDS ORDERED: LUTE20TA PO (11:42)
[2019-03-17] MEDS ORDERED: MAGN300C PO (11:43)
[2019-03-17] MEDS ORDERED: CALC1TAB86 PO (11:43)
[2019-03-17 12:15] LABS: BASOPHILS # (AUTO) 0.02 x10^3/uL (0-0.1); BASOPHILS % (AUTO) 0 % (0-1); EOSINOPHILS # (AUTO) 0.06 x10^3/uL (0-0.4); EOSINOPHILS % (AUTO) 2 % (1-7); LYMPHOCYTES # (AUTO) 0.83 x10^3/uL (1-3.4); LYMPHOCYTES % (AUTO) 21 % (22-44); MD NO; MEAN CORPUSCULAR HEMOGLOBIN 30.8 pg (27.0-34.8); MEAN CORPUSCULAR HGB CONC 34.1 g/dL (32.4-35.8); MEAN CORPUSCULAR VOLUME 90.4 fL (80-100); MEAN PLATELET VOLUME 8.4 fL (7.4-10.4); MONOCYTES # (AUTO) 0.46 x10^3/uL (0.2-0.8); MONOCYTES % (AUTO) 12 % (2-9); NEUTROPHILS # (AUTO) 2.55 x10^3/uL (1.8-6.8); NEUTROPHILS % (AUTO) 65 % (42-75); PLATELET COUNT 170 x10^3/uL (130-400); RED BLOOD COUNT 4.24 x10^6/uL (3.82-5.3); RED CELL DISTRIBUTION WIDTH 13.2 % (9.6-15.2)
[2019-03-17 12:24] LABS: ALBUMIN 3.5 g/dL (3.4-5.0); ANION GAP 5 mmol/L (5-15); CALCIUM 8.8 mg/dL (8.5-10.1); CHLORIDE 104 mmol/L (98-107); CREATININE 1.23 mg/dL (0.55-1.02)
--- NOTE | 2019-03-17 13:06 | NUR ---
RESULTS BACK, CHART UP FOR RECHECK.
[2019-03-17 13:12] VITALS: BP 164/43
== END 2019-03-17 13:18 | disposition home or self-care (01) ==
LOC: ED 12:05
DX: B34.9 Viral infection, unspecified (principal); I11.0 Hypertensive heart disease with heart failure; I50.9 Heart failure, unspecified; E11.9 Type 2 diabetes mellitus without complications; E78.00 Pure hypercholesterolemia, unspecified; K21.9 Gastro-esophageal reflux disease without esophagitis; Z90.49 Acquired absence of other specified parts of digestive tract; Z95.1 Presence of aortocoronary bypass graft
CPT/HCPCS: 36415; 71046; 80048; 82040; 85025; 99284

== ENCOUNTER 2020-08-10 06:52 | Observation (INO) | payer MEDICARE, OTHER ==
[~2020-08-10] VITALS: Ht 157.5 cm; Wt 68.6 kg
[~2020-08-10 06:52] MED LIST changes: +AMLO10TA8 PO; +CALC-725 PO; +CHOL400T5 PO; +GABA-827 PO; +HYDR12.517 PO; +IRON15TA3 PO; +LUTE20TA PO; +MAGN300C PO; +METO25TA35 PO; +UBIQ100C3 PO
--- NOTE | 2020-08-10 07:07 | NUR ---
Pt to room from triage via wheelchair. Pt c/o intermittent chest palpitations x1 week, worse since last night. Pt denies CP, states increased weakness and SOB with exertion. Pt speaking in full sentences, resp even and unlabored. Pt reports hx A.fib, tripple bypass 3 years ago. Pt placed in gown, positioned for comfort in bed. Continuous heart, oxygen and BP monitors applied, all safety measures observed. Pt's at bedside for support.
[2020-08-10] MEDS ORDERED: INSU100V8 SQ (07:26)
[2020-08-10] MEDS ORDERED: CARV3.122 PO (07:26)
[2020-08-10] MEDS ORDERED: PANT40TA6 PO (07:26)
[2020-08-10 07:36] LABS: BASOPHILS % (AUTO) 1 % (0-1); EOSINOPHILS % (AUTO) 3 % (1-7); LYMPHOCYTES % (AUTO) 22 % (22-44); MEAN CORPUSCULAR HEMOGLOBIN 30.2 pg (27.0-34.8); MEAN CORPUSCULAR HGB CONC 32.7 g/dL (32.4-35.8); MEAN PLATELET VOLUME 8.3 fL (7.4-10.4); MONOCYTES % (AUTO) 6 % (2-9); NEUTROPHILS % (AUTO) 68 % (42-75); PLATELET COUNT 228 x10^3/uL (130-400); RED BLOOD COUNT 4.85 x10^6/uL (3.82-5.3); RED CELL DISTRIBUTION WIDTH 13.1 % (9.6-15.2)
[2020-08-10 07:45] LABS: MD NO
[2020-08-10 07:48] LABS: ALANINE AMINOTRANSFERASE 22 U/L (12-78); ALBUMIN 3.9 g/dL (3.4-5.0); ANION GAP 4 mmol/L (5-15); CALCIUM 9.5 mg/dL (8.5-10.1); CHLORIDE 109 mmol/L (98-107); CREATININE 1.11 mg/dL (0.55-1.02)
--- NOTE | 2020-08-10 07:48 | NUR ---
Pt ambulatory to bathroom with steady gait accompanied by her .
[2020-08-10 07:53] LABS: ALKALINE PHOSPHATASE 94 U/L (45-117); BILIRUBIN,TOTAL 0.5 mg/dL (0.2-1.0); TOTAL PROTEIN 7.7 g/dL (6.4-8.2); TROPONIN I < 0.015 ng/mL (0.000-0.045)
--- NOTE | 2020-08-10 07:58 | NUR ---
Pt back to bed, positioned for comfort in bed, denies other needs.
[2020-08-10 08:11] LABS: FREE T4 (FREE THYROXINE) 1.21 ng/dL (0.76-1.46)
--- NOTE | 2020-08-10 08:19 | NUR ---
Report to Theresa MARTIN. POC discussed.
[2020-08-10] MEDS ORDERED: ASPIRIN 325 MG TABLET PO ONE (09:00)
--- NOTE | 2020-08-10 09:16 | NUR ---
Pt resting in bed, denies needs, NADN.
[2020-08-10] MEDS ORDERED: ASPIRIN 325 MG TABLET ONE (09:18)
--- NOTE | 2020-08-10 09:21 | NUR ---
DELIA held per Dr. Whitehead.
--- NOTE | 2020-08-10 10:03 | NUR ---
REPORT GIVEN TO MARIO RANDOLPH.
--- NOTE | 2020-08-10 10:05 | NUR ---
Pt ambulatory to bathroom and back to bed without difficulty.
[2020-08-10 10:46] VITALS: BP 159/54
[2020-08-10 12:35] LABS: TROPONIN I < 0.015 ng/mL (0.000-0.045)
[2020-08-10] MEDS ORDERED: POTASSIUM CHLORIDE 20 MEQ TAB.ER.PRT PO ONE (13:30)
[2020-08-10] MEDS: HEPARIN 5,000 UNITS/ML, 1ML SQ SCH (13:42)
[2020-08-10 13:50] VITALS: BP 150/71
[2020-08-10 14:06] LABS: MICROSCOPIC AUTO
[2020-08-10] MEDS: CARVEDILOL 3.125 MG TABLET PO SCH (20:15)
[2020-08-10 20:16] VITALS: BP 174/60
[2020-08-10] MEDS: AMLODIPINE 10 MG TAB PO SCH (20:16)
[2020-08-10] MEDS ORDERED: PRAVASTATIN 40 MG TABLET PO SCH (21:00)
[2020-08-10] MEDS: INSULIN LISPRO 100 UNITS/ML, PEN SQ-INSULIN SCH (21:07)
[2020-08-11] MEDS: HEPARIN 5,000 UNITS/ML, 1ML SQ SCH ×2 (02:20→13:30)
[2020-08-11 02:23] VITALS: BP 154/67
[2020-08-11] MEDS: INSULIN LISPRO 100 UNITS/ML, PEN SQ-INSULIN SCH ×2 (07:00→12:18)
[2020-08-11 08:10] VITALS: BP 153/77
[2020-08-11] MEDS ORDERED: CALCIUM/VITAMIN D3 250-125 TABLET PO SCH (09:00)
[2020-08-11] MEDS ORDERED: PANTOPRAZOLE 40MG TABLET PO SCH (09:00)
[2020-08-11] MEDS ORDERED: LOSARTAN 50MG TABLET PO SCH (09:00)
[2020-08-11] MEDS ORDERED: HYDROCHLOROTHIAZIDE 12.5 MG CAPSULE PO SCH (09:00)
[2020-08-11] MEDS ORDERED: ASPIRIN 81 MG TABLET EC PO SCH (09:00)
[2020-08-11] MEDS ORDERED: CLOPIDOGREL 75 MG TABLET PO SCH (09:00)
[2020-08-11] MEDS ORDERED: REGADENOSON 0.4 MG/5 ML SYRINGE ONE (09:36)
[2020-08-11] MEDS ORDERED: CEPHALEXIN 250 MG CAPSULE PO SCH (10:00)
[2020-08-11 12:11] VITALS: BP 169/69
[2020-08-11] MEDS: AMLODIPINE 10 MG TAB PO SCH (12:17)
[2020-08-11] MEDS: CARVEDILOL 3.125 MG TABLET PO SCH (12:18)
[2020-08-11] MEDS ORDERED: CEPH-367 PO (13:27)
== END 2020-08-11 14:00 | disposition home or self-care (01) ==
LOC: ED 09:13 → INTOOBSV 09:15 → EDIP 09:15 → 5SO 10:26 → DCLOUNGE 08-11 13:50
PROVIDERS: ADMIT Internal Medicine; ATTEND Hospitalist
DX: R00.2 Palpitations (principal); R53.83 Other fatigue; R07.89 Other chest pain; I48.91 Unspecified atrial fibrillation; N39.0 Urinary tract infection, site not specified; I13.0 Hypertensive heart and chronic kidney disease with heart failure and stage 1 through stage 4 chronic kidney disease, or unspecified chronic kidney disease; E11.22 Type 2 diabetes mellitus with diabetic chronic kidney disease; I50.9 Heart failure, unspecified; N18.9 Chronic kidney disease, unspecified; K21.9 Gastro-esophageal reflux disease without esophagitis; N81.10 Cystocele, unspecified; I25.10 Atherosclerotic heart disease of native coronary artery without angina pectoris; Z95.1 Presence of aortocoronary bypass graft; Z87.448 Personal history of other diseases of urinary system; Z79.899 Other long term (current) drug therapy; Z79.4 Long term (current) use of insulin; Z79.82 Long term (current) use of aspirin
CPT/HCPCS: 36415; 71045; 78452; 80053; 81001; 82962; 83735; 83880; 84439; 84443; 84484; 85025; 87086; 93005; 93017; 93306; 96372; 99285; A9502; C9898; G0378; J1644; J1815; J2785